=== PATIENT | female | born 2000 | race Caucasian/White ===

== ENCOUNTER 2022-05-25 12:58 | Emergency (ER) | payer OTHER ==
[~2022-05-25] VITALS: Ht 157.5 cm; Wt 74.5 kg
[2022-05-25 13:20] VITALS: BP 126/87; PULSE 82; TEMP 98.1
[2022-05-25] MEDS ORDERED: POLYMYXIN B/TRIMETH OD (13:45)
[2022-05-26] MEDS ORDERED: POLYMYXIN B/TRIMETH OD (09:09)
== END 2022-05-25 13:54 | disposition home or self-care (01) ==
LOC: COL.ER 12:58
DX: H10.9 Unspecified conjunctivitis (principal)